=== PATIENT | female | born 1970 | race Two or more races ===

== ENCOUNTER 2023-04-20 13:53 | Emergency (ER) | payer MEDICAID, OTHER ==
[~2023-04-20] VITALS: Ht 157.5 cm; Wt 60.8 kg
[2023-04-20] VITALS (7 sets, daily range): BP systolic 87–98; BP diastolic 51–60; PULSE 92–102; RESP 18–24; TEMP 98–98.4; O2SAT 95–97
[2023-04-20] MEDS ORDERED: SODIUM CHLORIDE 0.9% 500 ML IV ONE (14:45)
[2023-04-20] MEDS ORDERED: InsuLIN REG 1unit/0.01ml Soln (100units/ml) IV ONE (14:45)
[2023-04-20 15:27] LABS: Urine Bacteria FEW /hpf (None Seen); Urine Blood 3+ /uL (Negative); Urine Specific Gravity 1.036 (1.001-1.035); Urine WBC 55 /hpf (0 - 5)
[2023-04-20 15:48] LABS: Basophils # (auto) 0 10 ^3/uL (0-0.2); Basophils % (auto) 0.4 % (0.0-2.0); Eosinophils # (auto) 0 10 ^3/uL (0-0.8); Eosinophils % (auto) 0.1 % (0.0-7.0); Hematocrit 23.2 % (36.0-46.0); Hemoglobin 7.3 g/dL (12.2-16.2); Lymphocytes # (auto) 0.5 10 ^3/uL (0.4-5.4); Lymphocytes % (auto) 8.1 % (10.0-50.0); Mean Corpuscular Hemoglobin 27.6 pg (28.0-32.0); Mean Corpuscular Hgb Conc. 31.4 g/dL (32.0-36.0); Mean Corpuscular Volume 87.8 fL (80.0-100.0); Monocytes # (auto) 0.3 10 ^3/uL (0-1.3); Monocytes % (auto) 5.5 % (0.0-12.0); Neutrophils # (auto) 4.9 10 ^3/uL (1.6-8.6); Neutrophils % (auto) 85.9 % (37.0-80.0); Nucleated Red Blood Cells % 0.1 %; Red Blood Cells 2.64 10^6/uL (4.0-5.20); Red Cell Distribution Width 16.8 % (11.8-14.3); White Blood Cell 5.7 10^3/uL (4.4-10.8)
[2023-04-20 16:07] LABS: Albumin 2.3 g/dL (3.4-5.0); Calcium 7.5 mg/dL (8.5-10.1); INR 1.25 (0.9-1.15); Magnesium 3.1 mg/dL (1.6-2.6); Partial Thromboplastin Time 29.8 SEC (24.5-34.5); Potassium 4.1 mmol/L (3.5-5.1)
[2023-04-20 16:16] LABS: BUN/Creatinine Ratio 21.1 (10.0-20.0); Bilirubin, Total 0.8 mg/dL (0.2-1.0); Total Protein 5.5 g/dL (6.4-8.2)
[2023-04-20] MEDS ORDERED: cefTRIAXone 1GM/50ML D5W 50 ML IV ONE (16:45)
[2023-04-20 23:53] LABS: Hematocrit 21.8 % (36.0-46.0); Hemoglobin 7.2 g/dL (12.2-16.2)
[2023-04-21] MEDS ORDERED: SODIUM CHLORIDE 0.9% 1,000 ML IV ONE (00:30)
[2023-04-21] MEDS ORDERED: InsuLIN REG 1unit/0.01ml Soln (100units/ml) IV ONE ×2 (00:30→06:15)
[2023-04-21 08:00] VITALS: PULSE 103; RESP 25; TEMP 98.5; O2SAT 96
[2023-04-21] MEDS ORDERED: GLYB5TAB9 PO (08:41)
[2023-04-21] MEDS ORDERED: CIPR-173 PO (08:44)
[2023-04-21 09:53] VITALS: BP 93/57; PULSE 101; RESP 26; O2SAT 96
== END 2023-04-21 08:40 | disposition home or self-care (01) ==
LOC: ER 13:53
DX: D25.9 Leiomyoma of uterus, unspecified (principal); D64.9 Anemia, unspecified; N39.0 Urinary tract infection, site not specified; R73.9 Hyperglycemia, unspecified; R53.1 Weakness
CPT/HCPCS: 36415; 36430; 76856; 80053; 81001; 82962; 83735; 85014; 85018; 85025; 85610; 85730; 86850; 86900; 86901; 86920; 93005; 96361; 96365; 96375; 96376; 99285; J0696; J1815; J7030; J7040; P9016